=== PATIENT | female | born 1950 | race Two or more races ===

== ENCOUNTER 2017-10-01 06:00 | Day surgery (SDC) | payer OTHER ==
[~2017-10-01 06:00] MED LIST: CATAFLAN PO; FOSAMAX70 MG PO
== END 2017-10-01 13:10 | disposition home or self-care (01) ==
LOC: CIR.AMB 06:00
DX: L72.0 Epidermal cyst (principal)

== ENCOUNTER 2018-07-23 08:30 | Outpatient (CLI) | payer OTHER | END 2018-07-23 15:00 | disposition home or self-care (01) | LOC: LAB 08:30 | DX: D64.89 Other specified anemias (principal); E11.9 Type 2 diabetes mellitus without complications; E78.49 Other hyperlipidemia; K76.89 Other specified diseases of liver; E03.8 Other specified hypothyroidism; E55.9 Vitamin D deficiency, unspecified; R29.898 Other symptoms and signs involving the musculoskeletal system ==

== ENCOUNTER 2018-10-06 11:27 | Emergency (ER) | payer OTHER ==
[~2018-10-06] VITALS: Ht 157.5 cm; Wt 55.3 kg
== END 2018-10-06 18:09 | disposition home or self-care (01) ==
LOC: ER 11:27
DX: K59.09 Other constipation (principal); N39.0 Urinary tract infection, site not specified; R10.32 Left lower quadrant pain

== ENCOUNTER 2020-06-19 11:22 | Outpatient (CLI) | payer OTHER | END 2020-06-19 15:00 | disposition home or self-care (01) | LOC: MRI 11:22 | PROVIDERS: ATTEND Obstetrics & Gynecology Gynecology | DX: D25.1 Intramural leiomyoma of uterus (principal); N95.0 Postmenopausal bleeding | CPT/HCPCS: 72195 ==

== ENCOUNTER 2020-08-17 09:42 | Outpatient (CLI) | payer OTHER | END 2020-08-17 09:58 | disposition home or self-care (01) | LOC: TOM 09:42 | PROVIDERS: ATTEND Internal Medicine Sports Medicine | DX: R10.9 Unspecified abdominal pain (principal); K57.32 Diverticulitis of large intestine without perforation or abscess without bleeding ==

== ENCOUNTER 2020-11-07 07:56 | Outpatient (CLI) | payer OTHER | END 2020-11-07 08:03 | disposition home or self-care (01) | LOC: RAD 07:56 | PROVIDERS: ATTEND General Practice | DX: M54.5 Low back pain (principal); R07.89 Other chest pain; R05 Cough ==

== ENCOUNTER 2020-11-13 06:38 | Day surgery (SDC) | payer OTHER | END 2020-11-13 11:10 | disposition home or self-care (01) | LOC: AMB-ENDOS 06:38 | PROVIDERS: ATTEND Surgery | DX: D12.2 Benign neoplasm of ascending colon (principal); Z20.822 Contact with and (suspected) exposure to COVID-19 ==

== ENCOUNTER → 2020-12-07 | Outpatient (CLI) | payer OTHER | END | disposition home or self-care (01) | LOC: TOM 09:23 | DX: J84.9 Interstitial pulmonary disease, unspecified (principal) ==

== ENCOUNTER 2024-11-02 10:54 | Emergency (ER) | payer OTHER ==
[~2024-11-02] VITALS: Ht 157.5 cm; Wt 52.6 kg
[~2024-11-02 10:54] MED LIST changes: +DICLOFENAC EPO1 EACH TD; +DICLOFENAC POTA50 MG PO; +NABUMETONE750 MG PO; +VOLTAREN ARTHRI20 GM TOP
[2024-11-02] MEDS ORDERED: GABAPENTIN300 M2 PO (11:31)
[2024-11-02] MEDS ORDERED: CRESTOR40 MG (11:32)
[2024-11-02] MEDS ORDERED: KETOROLAC TROMETHAMINE 60 MG VIAL IM STA (12:11)
[2024-11-02] MEDS ORDERED: KETOROLAC TROMETHAMINE 60 MG VIAL IM ONE (12:22)
== END 2024-11-02 13:09 | disposition home or self-care (01) ==
LOC: ER 10:59
DX: B02.9 Zoster without complications (principal); Z88.8 Allergy status to other drugs, medicaments and biological substances
CPT/HCPCS: 96372; 99282; J1885

== ENCOUNTER 2025-04-06 09:46 | Outpatient (CLI) | payer OTHER ==
[~2025-04-06 09:46] MED LIST changes: +CRESTOR40 MG; +GABAPENTIN300 M2 PO
== END 2025-04-06 09:52 | disposition home or self-care (01) ==
LOC: RAD 09:46
PROVIDERS: ATTEND Internal Medicine Sports Medicine
DX: R05.3 Chronic cough (principal)